=== PATIENT | female | born 2000 | race Caucasian/White ===

== ENCOUNTER 2024-02-15 09:04 | Outpatient (CLI) | payer MEDICAID ==
[2024-02-15 14:41] LABS: ABSOLUTE RETICS # AUTO 0.026 10^6/uL (0.020-0.110); BASOPHILS # (AUTO) 0.1 10^3/uL (0.0-0.1); BASOPHILS % (AUTO) 0.8 %; EOSINOPHILS # (AUTO) 0.1 10^3/uL (0.0-0.7); EOSINOPHILS % (AUTO) 1.2 %; LYMPHOCYTES # (AUTO) 2.8 10^3/uL (1.5-3.5); LYMPHOCYTES % (AUTO) 33.8 %; MEAN CORPUSCULAR HEMOGLOBIN 29.5 pg (27.0-31.0); MEAN CORPUSCULAR HGB CONC 32.5 g/dL (32.0-36.0); MEAN CORPUSCULAR VOLUME 90.9 fL (81.0-99.0); MEAN PLATELET VOLUME 10.1 fL (7.9-10.8); MONOCYTES # (AUTO) 0.8 10^3/uL (0.0-1.0); MONOCYTES % (AUTO) 9.4 %; NEUTROPHILS # (AUTO) 4.5 10^3/uL (1.5-6.6); NEUTROPHILS % (AUTO) 54.7 %; PLT - PLATELET COUNT 397 10^3/uL (130-450); RED CELL DISTRIBUTION WIDTH 11.8 % (12.0-15.0); WHITE BLOOD COUNT 8.3 x10^3/uL (4.8-10.8)
[2024-02-15 15:13] LABS: THYROID STIMULATING HORMONE 1.63 uIU/mL (0.34-5.60)
[2024-02-15 15:19] LABS: FERRITIN 50.1 ng/mL (11.0-306.8)
[2024-02-15 16:12] LABS: % IRON SATURATION 28 % (20-50); ALBUMIN 4.9 g/dL (3.2-5.5); ALBUMIN/GLOBULIN RATIO 1.6 (1.0-2.2); ALKALINE PHOSPHATASE 32 IU/L (42-121); ALT ALANINE AMINOTRANSFERASE 11 IU/L (10-60); AST ASPARTATE AMINOTRANSFERASE 21 IU/L (10-42); BILIRUBIN,TOTAL 0.7 mg/dL (0.2-1.0); BUN - BLOOD UREA NITROGEN 8 mg/dL (6-20); CALCIUM 10.3 mg/dL (8.5-10.3); CARBON DIOXIDE - CO2 26 mmol/L (21-32); CHLORIDE 101 mmol/L (101-111); CHOLESTEROL 221 mg/dL; CREATININE 0.5 mg/dL (0.6-1.3); GFR - MDRD 150 (>89); GLUCOSE 82 mg/dL (74-104); HDL CHOLESTEROL 44 mg/dL; IRON 87 ug/dL (50-212); LDL CHOLESTEROL,CALCULATED 157 mg/dL; LDL/HDL RATIO 3.6 (<4.4); POTASSIUM 3.5 mmol/L (3.5-4.5); SODIUM 136 mmol/L (135-145); TOTAL IRON BINDING CAPACITY 315 ug/dL (250-450); TOTAL PROTEIN 7.9 g/dL (6.4-8.9); TRANSFERRIN 225 mg/dL (203-362); TRIGLYCERIDES 100 mg/dL (48-352); VLDL CHOLESTEROL 20 mg/dL
== END 2024-02-15 09:05 | disposition home or self-care (01) ==
LOC: LAB.S 09:04
PROVIDERS: ATTEND Physician Assistant Medical
DX: F41.9 Anxiety disorder, unspecified (principal); Z13.9 Encounter for screening, unspecified
CPT/HCPCS: 36415; 80050; 80061; 82607; 82728; 82746; 83540; 83721; 84466; 85045